=== PATIENT | male | born 1945 | race Hispanic/Latino ===

== ENCOUNTER 2022-03-18 21:25 | Emergency (ER) | payer OTHER ==
[~2022-03-18] VITALS: Ht 172.7 cm; Wt 81.6 kg
[2022-03-18 22:10] VITALS: BP 154/76
[2022-03-18] MEDS ORDERED: IBUP-2070 PO (23:14)
[2022-03-18] MEDS ORDERED: D-ME118S47 PO (23:14)
[2022-03-18] MEDS ORDERED: AZIT1PAC7 PO (23:14)
== END 2022-03-18 23:29 | disposition home or self-care (01) ==
LOC: EDH 21:25
DX: U07.1 COVID-19 (principal); E11.9 Type 2 diabetes mellitus without complications; Z79.1 Long term (current) use of non-steroidal anti-inflammatories (NSAID)
CPT/HCPCS: 87635; 87804 ×2; 87880; 99283; C9803

== ENCOUNTER 2022-03-28 11:32 | Emergency (ER) | payer OTHER ==
[~2022-03-28] VITALS: Ht 172.7 cm; Wt 81.6 kg
[~2022-03-28 11:32] MED LIST: AZIT1PAC7 PO; D-ME118S47 PO; IBUP-2070 PO
[2022-03-28 13:57] VITALS: BP 117/83
== END 2022-03-28 14:11 | disposition home or self-care (01) ==
LOC: EDH 11:32
DX: U07.1 COVID-19 (principal); E11.9 Type 2 diabetes mellitus without complications; E78.00 Pure hypercholesterolemia, unspecified; I10 Essential (primary) hypertension; G70.00 Myasthenia gravis without (acute) exacerbation; Z98.890 Other specified postprocedural states
CPT/HCPCS: 71045; 87635; 99284; C9803

== ENCOUNTER → 2023-11-30 | Outpatient (CLI) | payer OTHER ==
[~2023-11-30] MED LIST changes: +BROM118S48 PO; -D-ME118S47 PO
== END | disposition home or self-care (01) ==
LOC: RAH 13:08
PROVIDERS: ATTEND Internal Medicine
DX: R22.1 Localized swelling, mass and lump, neck (principal)
CPT/HCPCS: 76536

== ENCOUNTER → 2025-04-28 | Outpatient (CLI) | payer OTHER ==
--- NOTE | 2025-04-29 06:50 | HMCIMG ---
EXAMINATION: DUPLEX ULTRASOUND EXAMINATION OF THE BILATERAL LOWER EXTREMITY ARTERIES. CLINICAL HISTORY: PVD. COMPARISON: None. FINDINGS: Peak systolic velocities within the right lower arteries are as follows: Common femoral artery: 213 cm/s. Superficial femoral artery: 198 cm/s at proximal, 58 cm/s at mid, and 117 cm/s at distal segments. Popliteal artery: 74 cm/s at proximal and 70 cm/s at distal segments. Posterior tibial artery: 63 cm/s. Anterior tibial artery: 60 cm/s. Dorsalis pedis artery: 25 cm/s. The right lower limb arteries demonstrate biphasic to monophasic waveforms in all arteries. Peak systolic velocities within the left lower arteries are as follows: Common femoral artery: 99 cm/s. Superficial femoral artery: 51 cm/s at proximal, 58 cm/s at mid, and 67 cm/s at distal segments. Popliteal artery: 38 cm/s at proximal and 55 cm/s at distal segments. Posterior tibial artery: 31 cm/s. Anterior tibial artery: 34 cm/s. Dorsalis pedis artery: 16 cm/s. The left lower limb arteries demonstrate monophasic waveforms in all arteries. There is intimal wall thickening in both the lower limb arteries. There is a soft plaque in the right common femoral artery causing about 30% to 40% diameter stenosis. There is raised velocity in the right common femoral artery. IMPRESSION: Mild intimal wall thickening in both the lower limb arteries. Both lower limb arteries demonstrate biphasic to monophasic waveforms. Plaque as described. There is no significant flow limiting lesions in the remainder of the arteries.Raised velocity in the right common femoral artery. /Jenks
== END | disposition home or self-care (01) ==
LOC: RAH 09:56
PROVIDERS: ATTEND Internal Medicine
DX: I70.201 Unspecified atherosclerosis of native arteries of extremities, right leg (principal); I77.89 Other specified disorders of arteries and arterioles
CPT/HCPCS: 93925